=== PATIENT | female | born 1955 | race Caucasian/White ===

== ENCOUNTER 2020-07-15 08:51 | Observation (INO) ==
--- NOTE | 2020-07-08 11:13 | PAT Medication Instructions ---
Medication Instructions Date of Service July 08, 2020 Home Medications albuterol sulfate 1 puff INHALATION QID PRN fluticasone furoate-vilanterol [Breo Ellipta] 1 inh INHALATION QAM latanoprost 1 drp OPHTHALMIC (EYE) HS meloxicam [Mobic] 7.5 mg PO BID mepolizumab [Nucala] 100 mg SUBCUT MO 1 omeprazole 20 mg PO QAM tiotropium bromide [Spiriva Respimat] 2 puff INHALATION HS Continue as directed mepolizumab [Nucala] 100 mg SUBCUT MO 1 ASK your surgeon for instructions meloxicam [Mobic] 7.5 mg PO BID Take morning of surgery With a small sip of water, OTHERWISE NOTHING TO EAT OR DRINK AFTER MIDNIGHT: albuterol sulfate 1 puff INHALATION QID PRN (use if needed; please bring with you to hospital day of surgery if possible) fluticasone furoate-vilanterol [Breo Ellipta] 1 inh INHALATION QAM omeprazole 20 mg PO QAM Take evening before surgery albuterol sulfate 1 puff INHALATION QID PRN (if needed) latanoprost 1 drp OPHTHALMIC (EYE) HS tiotropium bromide [Spiriva Respimat] 2 puff INHALATION HS Other Notes If you have any questions please call us at [phone] or [phone] or [phone] or [phone]
--- NOTE | 2020-07-09 11:22 | Anesthesiology Consultation ---
Date of Service July 09, 2020 Assessment & Plan (1) Encounter for pre-operative examination: COVID Status: As of 07/08 assessment, patient denies travel to endemic area, known exposure/sick contacts, or symptoms of COVID19. Patient instructed that they and their household members must follow strict social distancing guidelines, wear a mask in public and avoid travel for 14 days prior to surgery. Preoperative COVID19 testing to be completed prior to surgery per surgeon's ar rangements (done today, 07/09 at [facility] [place] [facility] [place] Patient made aware to self-isolate as much as possible between COVID testing and surgery. Chart Review Chart Review: Acceptable Risk for Surgery (pending surgeon-ordered PCP clearance) and Patient seen in Pre Admission Testing Teaching & Discussion Instructed NPO after midnight before surgery, except medications with 15 cc of water. Medication instructions provided according to the PAT guidelines. History Surgery Operation Date: 07/15/20 12:10 Proposed Procedures p Right Total Knee Arthroplasty - Turner Fisher, Height/Weight Height: 5 ft 1 in Weight: 69.5 kg Allergies Allergy/AdvReac Type Severity Reaction Status Date / Time fentanyl AdvReac Nausea Verified 06/23/20 15:41 hydrocodone AdvReac n/v, Verified 06/23/20 15:38 hallucinations, syncope midazolam [From Versed] AdvReac Nausea Verified 06/23/20 15:41 oxycodone AdvReac n/v, Verified 06/23/20 15:38 hallucinations, syncope Medications Home Medications Medication Instructions Recorded Confirmed Last Taken albuterol sulfate 1 puff INHALATION QID PRN 06/23/20 06/23/20 Unknown fluticasone furoate-vilanterol 1 inh INHALATION QAM 06/23/20 06/23/20 Unknown [Breo Ellipta] latanoprost 1 drp OPHTHALMIC (EYE) HS 06/23/20 06/23/20 Unknown meloxicam [Mobic] 7.5 mg PO BID 06/23/20 06/23/20 Unknown mepolizumab [Nucala] 100 mg SUBCUT MO 06/23/20 06/23/20 Unknown omeprazole 20 mg PO QAM 06/23/20 06/23/20 Unknown tiotropium bromide [Spiriva 2 puff INHALATION HS 06/23/20 06/23/20 Unknown Respimat] Past Medical History Medical History (Updated 07/09/20 @ 11:42 by Amrit Zambrano) Asthma Using Spiriva and Advair daily, getting Nucala shots monthly. Uses PRN inh 1xmo on average Carpal tunnel syndrome of right wrist Degenerative disc disease GERD (gastroesophageal reflux disease) History of colitis Osteoarthritis Slipped intervertebral disc lumbar Exercise / Class Metabolic Activity II 4-5 Yardwork/Stairs/Walk up hill (Does Curves 5x per week (but not since COVID), remains active despite some MURPHY 2/2 asthma, denies any CP) Past Family History Family History Other Adopted Past Surgical History Surgical History History of arthroscopic knee surgery Rt History of cardiac cath either 2002 or 2003 - [facility] - no stents/angioplasty History of cholecystectomy History of colonoscopy History of D&C History of esophagogastroduodenoscopy (EGD) History of hysterectomy History of tooth extraction Nausea and vomiting after administration of anesthetic agent Slow to wake up after anesthesia Past Anesthesia History No Hx of Anesthesia Complications (other than PONV and 'slow to wake') and No Family Hx of Anesthesia Complications (unknown, adopted) "slow to wake" -- denies h/o reintubation, unanticipated admission or ICU stay. History of PONV No Hx of Motion Sickness and History of PONV Social History Smoking Status: Former smoker Do You Dip or Chew Tobacco: No Smoking End Date: quit at age 23 Hx Alcohol Use: No Hx Substance Use: No substance use type: does not use Review of Systems Pt denies any recent chest pain, shortness of breath, palpitations, cough, fever, URI, or uncontrolled acid reflux. Physical Exam Vital Signs BP: 113/69 P: 50bpm (asymptomatic, reports this is baseline) SPO2: 98% RA T: 98.6 F R: 12 ENMT Mouth: no dental restorations, no chipped teeth and no loose teeth Thyromental Distance: > or= 3.5 Finger Breadths Mallampati Class: I Neck normal visual inspection; neck extension not limited Respiratory normal respiratory effort Auscultation: lungs clear to auscultation bilaterally Cardiovascular Rate/Rhythm: regular rhythm and + bradycardic Heart Sounds: no murmur Vessels: no carotid bruit Extremities: no edema Testing Laboratory Results 07/09/20 11:46 07/09/20 11:46 PT 10.4 Seconds (9.0-12.0) 07/09/20 11:46 INR 1.0 (0.9-1.1) 07/09/20 11:46 APTT 25.6 Seconds (21.0-31.0) 07/09/20 11:46 Hemoglobin A1c 5.4 % (4.5-5.6) 07/09/20 11:46 Urine Color Yellow 07/09/20 Unknown Urine Appearance Clear (Clear) 07/09/20 Unknown Urine pH 5.0 (4.5-7.5) 07/09/20 Unknown Ur Specific [place] 1.008 (1.000-1.030) 07/09/20 Unknown Urine Protein Negative (Negative) 07/09/20 Unknown Urine Glucose (UA) Negative (Negative) 07/09/20 Unknown Urine Ketones Negative (Negative) 07/09/20 Unknown Urine Nitrite Negative (Negative) 07/09/20 Unknown Ur Leukocyte Esterase Trace (Negative) H 07/09/20 Unknown Urine WBC (Auto) 0 /hpf (0-5) 07/09/20 Unknown Urine RBC (Auto) 0-4 /hpf (0-4) 07/09/20 Unknown U Hyaline Cast (Auto) 0 /lpf (0-5) 07/09/20 Unknown U Epithel Cells (Auto) 0-5 /lpf (0-5) 07/09/20 Unknown Urine Bacteria (Auto) Negative (Negative) 07/09/20 Unknown Blood Type A Positive 07/09/20 11:46 Antibody Screen NEGATIVE 07/09/20 11:46 Electrocardiogram Date: 01/29/20 Findings: + NSR @ (79bpm) Chest X-Ray Date: 01/29/20 Findings: + NAD
[2020-07-09 12:09] LABS: Basophils # (auto) 0.02 K/uL (0-0.2); Basophils % (auto) 0.4 %; Eosinophils # (auto) 0.04 K/uL (0-0.5); Eosinophils % (auto) 0.9 %; Hematocrit (blood only) 40.1 % (37-47); Hemoglobin 13.5 g/dL (12.0-16.0); Lymphocytes # (auto) 1.34 K/uL (1.2-3.4); Lymphocytes % (auto) 29.3 %; Mean Corpuscular Hemoglobin 31.2 pg (25-34); Mean Corpuscular Hgb Conc 33.7 g/dL (32-36); Mean Corpuscular Volume 92.6 fL (80-100); Mean Platelet Volume 10.1 fL (7.4-10.4); Monocytes # (auto) 0.31 K/uL (0.11-0.59); Monocytes % (auto) 6.8 %; Neutrophils # (auto) 2.87 K/uL (1.4-6.5); Neutrophils % (auto) 62.6 %; Platelet Count 183 K/uL (130-400); RDW Coefficient of Variation 12.9 % (11.5-14.5); RDW Standard Deviation 43.4 fL (36.4-46.3); Red Blood Count 4.33 M/uL (4.2-5.4); White Blood Count 4.58 K/uL (4.8-10.8)
[2020-07-09 12:19] LABS: Estimated Average Glucose 108 mg/dl; Hemoglobin A1C 5.4 % (4.5-5.6)
[2020-07-09 12:21] LABS: BUN Creatinine Ratio 25.1 (10-20); Calcium 9.3 mg/dl (8.5-10.1); Creatinine Clr Calc Pharmacy 59.8 ml/min; Est GFR (African American) 82.8; Est GFR (Non-African American) 71.4; Potassium 4.1 mmol/L (3.5-5.1)
[2020-07-09 12:22] LABS: Appearance Urine Clear (Clear); Bacteria Urine Automated Negative (Negative); Bilirubin Urine Negative (Negative); Blood Urine Negative (Negative); Cast Urine Automated 0 /lpf (0-5); Color Urine Yellow; Epithelial Cell Urine Auto 0-5 /lpf (0-5); Glucose Urine UA Negative (Negative); Ketones Urine Negative (Negative); Leukocyte Esterase Urine Trace (Negative); Nitrite Urine Negative (Negative); Protein Urine Negative (Negative); RBC Urine Automated 0-4 /hpf (0-4); Specific Gravity Urine 1.008 (1.000-1.030); Urobilinogen Urine Negative (Negative); WBC Urine Automated 0 /hpf (0-5)
[2020-07-09 12:22] LABS: Partial Thromboplastin Ratio 0.9; Partial Thromboplastin Time 25.6 Seconds (21.0-31.0); Prothrombin Time 10.4 Seconds (9.0-12.0)
--- NOTE | 2020-07-13 16:38 | History & Physical Report ---
Date of Service July 15, 2020 Assessment & Plan (1) Degenerative joint disease of knee, right: I have indicated the patient for right total knee replacement. The risks, benefits and complications of surgery were explained to the patient which include but not limited to infection, acute blood loss, DVT/PE, injury to nerves, vessels, bone, soft tissue, arthrofibrosis, chronic pain, failure of the prosthesis, knee dislocation, leg length discrepancy, need for additional surgery, cardiac and pulmonary events and . The patient wished to proceed with surgery and informed consent was obtained at this time. We will plan for ASA BID post-operatively for DVT prophylaxis. Upon discharge the patient will be discharged home with home health services. Appropriate clearances by PCP w ere obtained. History of Present Illness Chief Complaint: Right knee pain/DJD Primary Care Provider: Juanita Sims DO The patient is a 65 year old female who presents with complaints of severe right knee pain and DJD. The patient has failed outpatient conservative treatments to this point which included NSAIDS, IA corticosteroid injection, bracing, home exercise/walking program. The patient's pain and limited function have progressed to the point where they severely hinder their activities of daily living and they no longer tolerate exercise programs. They are requesting to proceed with total knee replacement surgery. Allergies Allergy/AdvReac Type Severity Reaction Status Date / Time fentanyl AdvReac Nausea Verified 07/15/20 09:09 hydrocodone AdvReac n/v, Verified 07/15/20 09:09 hallucinations, syncope midazolam [From Versed] AdvReac Nausea Verified 07/15/20 09:09 oxycodone AdvReac n/v, Verified 07/15/20 09:09 hallucinations, syncope Home Medications Home Medications Medication Instructions Recorded Confirmed Type albuterol sulfate 1 puff INHALATION QID PRN 06/23/20 07/15/20 History fluticasone furoate-vilanterol 1 inh INHALATION QAM 06/23/20 07/15/20 History [Breo Ellipta] latanoprost 1 drp OPHTHALMIC (EYE) HS 06/23/20 07/15/20 History meloxicam [Mobic] 7.5 mg PO BID 06/23/20 07/15/20 History mepolizumab [Nucala] 100 mg SUBCUT MO 06/23/20 07/15/20 History omeprazole 20 mg PO QAM 06/23/20 07/15/20 History tiotropium bromide [Spiriva 2 puff INHALATION HS 06/23/20 07/15/20 History Respimat] Past Med/Surg History Medical History Asthma Using Spiriva and Advair daily, getting Nucala shots monthly. Uses PRN inh 1xmo on average Carpal tunnel syndrome of right wrist Degenerative disc disease GERD (gastroesophageal reflux disease) History of colitis Osteoarthritis Slipped intervertebral disc lumbar Surgical History History of arthroscopic knee surgery Rt History of cardiac cath either 2002 or 2003 - [facility] - no stents/angioplasty History of cholecystectomy History of colonoscopy History of D&C History of esophagogastroduodenoscopy (EGD) History of hysterectomy History of tooth extraction Nausea and vomiting after administration of anesthetic agent Slow to wake up after anesthesia Family History Other Adopted Social History Smoking Status: Former smoker Smoking End Date: quit at age 23; Second Hand Exposure: Yes; Do You Dip or Chew Tobacco: No; Tobacco Cessation Education Requested by Patient: No Hx Alcohol Use: No Hx Substance Use: No Preferred Language: Nepalese Communication Ability: Effective Reversing Mill Roller Required: No Beliefs That Will Affect Care: None Current Living Situation: Alone Feels Safe at Home: Yes Safety Concerns: Feels Safe At This Time Assistive Devices: Glasses Review of Systems Review of Systems: All systems reviewed & are unremarkable except as noted in HPI & below Constitutional: as per Subjective / HPI Physical Exam Physical Exam: RLE NVSI +EHL/FHL/TA/GS SILT grossly, +2 DP pulse, compartments soft NT, limited painful ROM of the knee, +LJLT, 0-110 degrees of flexion, +creptius. Constitutional: WD/WN, vitals as above Eyes: PERRL, conjunctivae normal, anicteric sclerae ENMT: external ear and nose normal, oropharynx normal Neck: trachea midline, no thyromegaly Respiratory: normal respiratory effort, lungs clear to auscultation Cardiovascular: RRR, no murmur, no edema Gastrointestinal (Abdomen): normal bowel sounds, soft, nontender, no hepatosplenomegaly Musculoskeletal: no cyanosis or clubbing, extremities motor strength 5/5 Skin: no rashes, warm and dry Neurologic: patellar DTR's 2+ bilat, sensation intact Psychiatric: A+Ox3, euthymic affect Lymphatic: no cervical or axillary lymphadenopathy Results & Data Results & Data ([facility]) Diagnostic Findings Multiple views of the knee demonstrates severe tricompartmental DJD with complete loss of the lateral joint space. +osteophytes, +sclerosis lateral and patellofemoral compartment Pre Admission Testing Addendum Laboratory Results 07/09/20 11:46 07/09/20 11:46 PT 10.4 Seconds (9.0-12.0) 07/09/20 11:46 INR 1.0 (0.9-1.1) 07/09/20 11:46 APTT 25.6 Seconds (21.0-31.0) 07/09/20 11:46 Hemoglobin A1c 5.4 % (4.5-5.6) 07/09/20 11:46 Urine Color Yellow 07/09/20 Unknown Urine Appearance Clear (Clear) 07/09/20 Unknown Urine pH 5.0 (4.5-7.5) 07/09/20 Unknown Ur Specific [place] 1.008 (1.000-1.030) 07/09/20 Unknown Urine Protein Negative (Negative) 07/09/20 Unknown Urine Glucose (UA) Negative (Negative) 07/09/20 Unknown Urine Ketones Negative (Negative) 07/09/20 Unknown Urine Nitrite Negative (Negative) 07/09/20 Unknown Ur Leukocyte Esterase Trace (Negative) H 07/09/20 Unknown Urine WBC (Auto) 0 /hpf (0-5) 07/09/20 Unknown Urine RBC (Auto) 0-4 /hpf (0-4) 07/09/20 Unknown U Hyaline Cast (Auto) 0 /lpf (0-5) 07/09/20 Unknown U Epithel Cells (Auto) 0-5 /lpf (0-5) 07/09/20 Unknown Urine Bacteria (Auto) Negative (Negative) 07/09/20 Unknown Blood Type A Positive 07/09/20 11:46 Antibody Screen NEGATIVE 07/09/20 11:46 10/21/20 Unknown Urine Culture - Final Urine,Clean Catch No growth - less than 1,000 colonies/mL.
[~2020-07-15 08:51] MED LIST: ACETAMINOPHEN 500 MG TAB PO SCH; BUPIVACAINE 0.5 % 5 MG/1 ML PF 10ML VIAL ONE; CeleBREX 200 MG CAP PO SCH; DEXAMETHASONE SOD INJ 4 MG/ML VIAL ONE; EPINEPHrine INJ 1 MG/ML AMP ONE; FAMOTIDINE 20 MG TAB PO SCH; GABAPENTIN 600 MG DOSE PO SCH; LIDOCAINE HCL 2% 2 ML VIAL/AMP(20MG/ML) INFIL ONE; LR 500ML BOLUS, THEN 15ML/HR IV SCH; METOCLOPRAMIDE HCL 10 MG TABLET PO SCH; MIDAZOLAM HCL 1 MG/ML 2ML VIAL ONE; ONDANSETRON INJ 2 MG/ML 2 ML VIAL ONE; PROPOFOL IV EMULSION 10 MG/ML 20 ML VIAL IV ONE; ROPIVACAINE 0.5% 5 MG/ML 30 ML VIAL ONE; ROPIVACAINE 0.5% HCL/PF 150 MG, BUPIVACAINE 0.5% MPF 30 ML, EPINEPHrine 30MG/30ML (OR U... INFIL SCH; TRANEXAMIC ACID 1,000 MG **IV Intra-op IV SCH; TRANEXAMIC ACID 1,000 MG **IV Pre-op IV SCH; ceFAZolin 1000MG 1,000 MG/7.5 ML SYR IV SCH; dexAMETHasone 4 MG TAB PO SCH
[2020-07-15] MEDS ORDERED: PHENYLEPHRINE 100MCG/ML 5ML SYR IV PRN (09:09)
[2020-07-15] MEDS ORDERED: ONDANSETRON INJ 2 MG/ML 2 ML VIAL IV PRN ×2 (09:09→15:01)
[2020-07-15] MEDS ORDERED: ATROPINE SULFATE 0.1 MG/ML 10ML SYR IV PRN (09:09)
[2020-07-15] MEDS ORDERED: ePHEDrine sulfate 50 MG/ML AMP IV PRN (09:09)
[2020-07-15] MEDS ORDERED: LABETALOL HCL IV 5 MG/ML 20ML IV PRN (09:09)
[2020-07-15] MEDS ORDERED: ORTHO JOINT ANESTHETIC ONE (09:20)
[2020-07-15] MEDS ORDERED: BACITRACIN INJ 50,000 UNIT VIAL ONE (09:20)
--- NOTE | 2020-07-15 09:45 | History & Physical Bridge Note ---
Date of Service July 15, 2020 History & Physical Bridge Note I have examined the patient, reviewed the History & Physical and in the interval since the performance of the History & Physical I have noted the following changes of clinical significance: no changes noted
[2020-07-15] MEDS ORDERED: ePHEDrine sulfate 50 MG/ML SYR ONE (12:18)
--- NOTE | 2020-07-15 13:13 | Post Operative Brief Note ---
Immediate Post Op Note v1 Date of Surgery July 15, 2020 Pre & Post Diagnosis Operation Date: 07/15/20 11:25 Pre-Op Diagnosis: Osteoarthritis, Right knee Post-Op Diagnosis: Osteoarthritis, Right knee I identified the patient and participated in the time-out.: Yes Procedure Operation Date: 07/15/20 11:25 Actual Procedures p Right Total Knee Arthroplasty(Right) - Turner Fisher DO Surgeon Turner Fisher DO Manager Target Hong Johnston Estimated Blood Loss 65 Findings Consistent with Post-Op Diagnosis Fluids 1300 cc LR Specimens Distal femur and proximal tibia bone fragments Anesthesia Type Spinal MAC Complications none Disposition Disposition: Recovery Room Overlapping Procedure I was present for: the critical portions of procedure. I was immediately available: during the entire case. Back up surgeon: was not required during procedure.
--- NOTE | 2020-07-15 13:15 | Operative Report ---
Post Operative Report Pre & Post Diagnosis Operation Date: 07/15/20 11:25 Pre-Op Diagnosis: Osteoarthritis, Right knee Post-Op Diagnosis: Osteoarthritis, Right knee I identified the patient and participated in the time-out.: Yes Procedure Operation Date: 07/15/20 11:25 Actual Procedures p Right Total Knee Arthroplasty(Right) - Turner Fisher DO Surgeon Turner Fisher, Grocery Clerk Selling Hong Johnston Estimated Blood Loss 65 Findings Consistent with Post-Op Diagnosis Specimens Distal femur and proximal tibia bone fragment Anesthesia Type Spinal MAC Complications none Disposition Disposition: Recovery Room Indications The patient is a 65-year-old female presents with long history of severe right knee tricompartmental DJD and failed outpatient conservative treatments including NSAIDs, bracing, injections, bracing and home walking/exercise program. The patient's symptoms have progressed to the point where it has been difficult to perform normal activities of daily living. I have indicated the patient for a right total knee arthroplasty, the risks and benefits and complications of the procedure include but are not limited to infection bleeding damage to bone, nerves, vessels, surrounding soft tissue, blood clots, loss of function, leg length discrepancy, dislocation, failure of the components, need for additional surgery and . The patient wished to proceed with surgery at this time and informed consent was obtained. Appropriate clearances were obtained. Description of Procedure COMPONENTS USED: Jasson persona knee system: Femur size 6, Tibia size D, Tibial articulating surface 12 PS, Patella 35 mm Following induction of spinal anesthesia, a tourniquet was applied to the proximal aspect of the thigh and the patient's right leg was prepped and draped in the usual sterile manner. A timeout was performed, patient identified and site marlyn confirmed. Appropriate pre-operative IV antibiotics were given. The limb was exsanguinated with an Esmarch bandage and tourniquet was inflated to 300 mmHg. A longitudinal midline incision was made over the anterior knee. Subcutaneous tissue was sharply dissected down to fascia. Electrocautery was used for hemostasis. Next a parapatellar arthrotomy was performed. Patella was everted and the knee was flexed. A Rivers retractor was used to expose the synovium above on the anterior aspect of the femur and removed down to bone. Next, the anterior fat pad was removed to aid in visualization. The medial face of the tibia was cleared of soft tissue first with a Bovie and a cuevas elevator. This tissue was retracted posteriorly using a blunt Hohmann. Next, the extra-medullary tibial cutting guide was placed to the anterior aspect of the tibia. The tibia resection level was set taking 2mm from the defective tibial condyle. Resection depth was once again confirmed with rudolph wing. The medial and lateral collateral ligament was protected with two Hohmann retractors. The tibia guide was removed and proximal tibial bone fragment removed utilizing straight osteotome, electrocautery and Eduardo. Next, the distal femur intramedullary canal was accessed utilizing the step drill. The intramedullary distal femur cutting guide was placed into the canal and pinned into place. The distal femur was cut on the 5 degree setting. Next the cutting guide was removed and the femur was sized. Care was taken to ensure appropriate business representative all rotation and 5 degree holes were drilled. A size 6 4-in-1 cutting block was placed on the distal end of the femur and secured into place with two short headed screws. Two bent Hohmann retractors were placed to protect the medial and lateral collateral ligaments. The oscillating saw was used to cut anterior, posterior, anterior chamfer and posterior chamfer. The four and one cutting block was removed and bone fragments excised. Laminar mechanical spreader operator was placed laterally and the ACL and PCL were removed followed by the medial meniscus and posterior medial osteophytes. Aquamantys was utilized for any posterior medial bleeders and Orthomix injected into the posterior medial capsule. A laminar mechanical spreader operator was then placed in the medial compartment and the lateral meniscus and posterior osteophytes were removed. Aquamantys was utilized for any posterior lateral bleeders and Orthomix injected into the posterior lateral capsule. Next, drop migel and spacer block were placed with the leg in flexion and extension to assess alignment and flexion/extension gaps. Next, the proximal tibia was assessed and two bent Hohmans were placed medial and lateral to aid in visualization. The appropriate tibia size and rotation was selected and a size D tibial plate was pinned into place with appropriate rotation. Preparation of the tibia was completed utilizing the matching tibial drill and broach. I then turned my attention back to the distal femur in a trial femoral component was impacted into place. Appropriate femoral width was assessed and selected. Next the femur PS box cut guide was placed and cut made with the reciprocal saw and the PS box provisional placed. A trial size 10 PS tibia articular tray was placed and varus-valgus balance assessed in 0 degrees of extension and 30, 60 and 90 degrees of flexion. A final tibial articular surface size 12 PS was chosen. Assess was gained to the patella and caliper utilized to measure width. The patella reamer was utilized and remaining bone removed with oscillating saw. A size 35 mm patella button was selected and the patella pegs drilled. Trial patella button was placed and tracking was assessed. The knee was found to be well balanced, well aligned with excellent patella tracking. The trials were removed and final components were obtained and assembled. The knee was irrigated copiously with sterile saline solution mixed with bacitracin. Access to the proximal tibia was once again obtained utilizing to the Hohmans and the proximal tibia and distal femur were dried with lap sponges. The final components were cemented into place and all excess cement was removed. A trial tibial articular surface was placed while cemented hardened. Knee stability was once again assessed and the final component inserted. A Betadine soak was performed. After 3 minutes, the knee was once more irrigated with copious sterile saline solution with bacitracin. The knee was injected with the remaining Orthomix which includes a combination of Ropivicaine 0.5% 150mg, Bupivicaine 0.5%/Epinephrine 1:200,000 30ml, Toradol 30mg, Dexamethasone 4mg, Ketamine 10mg, Clonidine 100mcg and NSS 30ml solution. The capsulotomy was closed with #1 Vicryl followed by subcutaneous closure with 2-0 Vicryl suture and a 3-0 V-lock suture. Skin closure was performed using Prineo dressing followed by Telfa, 4 x 4s and faustino wrap. Tourniquet was deflated at 95 minutes. The patient tolerated the procedure well and was taken to the PACU in stable condition. Due to the complex nature of the procedure, the entire surgery was performed with the operational assistance of Hong Johnston PA-C. The assistant press operator, under direct supervision, was involved in the actual performance of all aspects of the surgical procedure including patient positioning, hemostasis, tissue retraction, instrument management and wound closure. I attest to the content of the Intraoperative Record and any orders documented therein. Any exceptions are noted below.
--- NOTE | 2020-07-15 14:18 | XRay Report ---
XR knee RT 1 or 2V routine CLINICAL HISTORY: Surgical Post Op COMPARISON: None. DISCUSSION: There are postsurgical changes of a total right knee arthroplasty and patellar resurfacin g. The femoral and tibial components appear well seated. There is gas present within the soft tissues consistent with recent surgery. IMPRESSION: Postsurgical changes of a total right knee arthroplasty. ACT 112: Negative or not required by law. Electronically signed by: Marcelo Morgan M.D. 07/15/2020 2:16 PM
--- NOTE | 2020-07-15 14:35 | Anesthesiology Progress Note ---
Date of Service July 15, 2020 Anesthesia Post Procedure Vital Signs Vital Signs: Temp Pulse Pulse Resp BP BP Pulse Ox 07/15/20 14:25 36.6 C 70 14 110/59 L 94 07/15/20 14:15 71 14 104/60 94 07/15/20 14:05 74 17 103/60 100 07/15/20 13:55 68 17 105/57 L 100 07/15/20 13:46 36.2 C L 64 12 88/52 L 98 07/15/20 10:00 62 18 123/74 96 07/15/20 09:15 36.9 C 70 16 120/77 94 Pain Intensity Right Knee: Pain Intensity: 2 Transfer of Care Handoff Completed per policy Notes Mental Status: alert / awake / arousable Patient Amnestic to Procedure: Yes Nausea / Vomiting: adequately controlled Pain: adequately controlled Airway Patency, RR, SpO2: stable & adequate BP & HR: stable & adequate Hydration State: stable & adequate Neuraxial Anesthesia: was administered and sensory block is resolving Anesthetic Complications: no major complications apparent and Pt Satisfied with anesthetic care
[2020-07-15] MEDS ORDERED: PNEUMOCOCCAL ADMINISTRATION CHARGE ONE (14:47)
[2020-07-15] MEDS ORDERED: PNEUMOCOCCAL POLYSACCHARIDES 25 MCG/0.5 ML VIAL/SYR IM ONE (14:47)
[2020-07-15] MEDS ORDERED: MAGNESIUM HYDROXIDE SUSP 30 ML UDC PO PRN (15:01)
[2020-07-15] MEDS ORDERED: NALOXONE HCL 0.4 MG/1 ML VIAL/CARP IV PRN (15:01)
[2020-07-15] MEDS ORDERED: METOCLOPRAMIDE HCL INJ 5 MG/ML 2 ML VIAL IV PRN (15:01)
[2020-07-15] MEDS ORDERED: bisacodyL 10 MG SUPP PR PRN (15:01)
[2020-07-15] MEDS ORDERED: diphenhydrAMINE Capsule 25 MG CAP PO PRN (15:01)
[2020-07-15] MEDS ORDERED: HYDROmorphone INJ 0.5 MG/0.5 ML SYR IV PRN (15:01)
[2020-07-15] MEDS ORDERED: ALBUTEROL HFA 8 GM INHALER INH PRN (15:01)
[2020-07-15] MEDS ORDERED: SODIUM CHLORIDE 0.9% 1000ML 1,000 ML IV SCH (15:01)
--- NOTE | 2020-07-15 16:43 | Orthopedic Progress Note ---
Date of Service July 15, 2020 Assessment & Plan (1) Degenerative joint disease of knee, right: Status post right total knee arthroplasty -Ancef x24 -DVT prophylaxis: SCDs, teds, ASA twice daily -Weight-bear as tolerated right lower extremity -PT/OT -Postoperative x-ray demonstrates a well aligned well fixed prosthesis without evidence of fracture or dislocation. -A.m. lab -DC planning Admission and Anticipated Discharge Date Admission Date: July 15, 2020 Subjective Post Operative Progress Note Patient seen sitting up in bed, comfortable, denies complaints, pain well controlled, no acute issues. Patient still feeling effects of spinal anesthesia. Review of Systems Review of Systems: All systems reviewed & are unremarkable except as noted in HPI & below Constitutional: as per Subjective / HPI Physical Exam Physical Exam: Right lower extremity physical exam limited secondary to spinal anesthesia, +2 dorsalis pedis pulse, compartment soft nontender, dressing clean dry and intact. Results & Data ([facility]) Vital Signs (Past 12 Hours) Vital Signs Temp Pulse Pulse Resp BP BP Pulse Ox 07/15/20 15:40 36.4 C L 69 16 112/67 95 07/15/20 15:10 36.4 C L 67 16 100/62 95 07/15/20 14:47 36.4 C L 95 H 16 106/61 94 07/15/20 14:25 36.6 C 70 14 110/59 L 94 07/15/20 14:15 71 14 104/60 94 07/15/20 14:05 74 17 103/60 100 07/15/20 13:55 68 17 105/57 L 100 07/15/20 13:46 36.2 C L 64 12 88/52 L 98 07/15/20 10:00 62 18 123/74 96 07/15/20 09:15 36.9 C 70 16 120/77 94
[2020-07-15] MEDS: KETOROLAC TROMETHAMINE 15 MG/ML VIAL IV SCH (17:13)
[2020-07-15] MEDS: ceFAZolin 1000MG 1,000 MG/7.5 ML SYR IV SCH (20:02)
[2020-07-15] MEDS: SENNA 8.6 MG TAB PO SCH (20:03)
[2020-07-15] MEDS: DOCUSATE SODIUM 100 MG CAP PO SCH (20:03)
[2020-07-15] MEDS: LATANOPROST 0.005% OP SOLN 2.5 ML BTL OP SCH (20:03)
[2020-07-16] MEDS: KETOROLAC TROMETHAMINE 15 MG/ML VIAL IV SCH ×3 (00:56→11:27)
[2020-07-16] MEDS: ceFAZolin 1000MG 1,000 MG/7.5 ML SYR IV SCH (05:02)
[2020-07-16 07:35] LABS: Hematocrit (blood only) 35.8 % (37-47); Hemoglobin 12.1 g/dL (12.0-16.0); Mean Corpuscular Hemoglobin 31.1 pg (25-34); Mean Corpuscular Hgb Conc 33.8 g/dL (32-36); Platelet Count 176 K/uL (130-400); RDW Coefficient of Variation 12.9 % (11.5-14.5); RDW Standard Deviation 43.5 fL (36.4-46.3); Red Blood Count 3.89 M/uL (4.2-5.4); White Blood Count 8.55 K/uL (4.8-10.8)
[2020-07-16] MEDS: MULTIVITAMIN TAB PO SCH (07:56)
[2020-07-16] MEDS: PANTOprazole 40 MG TAB PO SCH (07:56)
[2020-07-16] MEDS: ASPIRIN 325 MG ECTAB PO SCH ×2 (07:56→20:52)
[2020-07-16] MEDS: FLUTICASONE/VILANTEROL 200/25MCG 14 PUFFS/INHALER INH SCH (07:57)
[2020-07-16] MEDS: UMECLIDINIUM BROMIDE 62.5MCG/BLISTER 7 PUFFS/INHALER INH SCH (07:57)
[2020-07-16] MEDS: DOCUSATE SODIUM 100 MG CAP PO SCH ×2 (07:57→20:52)
[2020-07-16 08:09] LABS: BUN Creatinine Ratio 23.9 (10-20); Creatinine Clr Calc Pharmacy 53.9 ml/min; Est GFR (African American) 73.9; Est GFR (Non-African American) 63.7; Potassium 4.1 mmol/L (3.5-5.1)
--- NOTE | 2020-07-16 10:30 | Orthopedic Progress Note ---
Date of Service July 16, 2020 Assessment & Plan (1) Degenerative joint disease of knee, right: Status post right total knee arthroplasty POD#1 -Ancef x24 -DVT prophylaxis: SCDs, teds, ASA twice daily -Weight-bear as tolerated right lower extremity -PT/OT -Postoperative x-ray demonstrates a well aligned well fixed prosthesis without evidence of fracture or dislocation. -A.m. lab - as above, hgb 12.1 -Neuropraxia: Right lower extremity: Reassurance provided, will continue to monitor, will flex the knee and remove dressing at this time. -DC planning Admission and Anticipated Discharge Date Admission Date: July 15, 2020 Subjective Post Operative Progress Note Patient seen this morning sitting up in bed, comfortable, denies complaints, pain well controlled, no acute issues. Patient still feeling Regional anesthesia to RLE. Review of Systems Review of Systems: All systems reviewed & are unremarkable except as noted in HPI & below Constitutional: as per Subjective / HPI Physical Exam Physical Exam: Right lower extremity physical exam limited secondary to persistent regional block, + neuropraxia of the right lower extremity. +2 dorsalis pulse, compartment soft nontender, dressing clean dry and intact. Constitutional: WD/WN, vitals as above Results & Data ([place]) Vital Signs (Past 12 Hours) Vital Signs Temp Pulse Resp BP Pulse Ox 07/16/20 07:21 36.5 C 64 16 110/70 98 07/16/20 03:33 36.8 C 76 16 98/61 L 98 07/15/20 22:56 36.8 C 80 16 100/61 95 Laboratory Results 07/16/20 07/16/20 Range/Units 07:04 07:04 WBC 8.55 (4.8-10.8) K/uL RBC 3.89 L (4.2-5.4) M/uL Hgb 12.1 (12.0-16.0) g/dL Hct 35.8 L (37-47) % MCV 92.0 (80-100) fL MCH 31.1 (25-34) pg MCHC 33.8 (32-36) g/dL RDW Std Deviation 43.5 (36.4-46.3) fL RDW Coeff of Forrest 12.9 (11.5-14.5) % Plt Count 176 (130-400) K/uL MPV 10.0 (7.4-10.4) fL Sodium 138 (136-145) mmol/L Potassium 4.1 (3.5-5.1) mmol/L Chloride 107 (98-107) mmol/L Carbon Dioxide 26 (21-32) mmol/L Anion Gap 5.0 (3-11) BUN 23 H (7-18) mg/dl Creatinine 0.95 (0.6-1.2) mg/dl Est Cr Clr Drug Dosing 53.9 ml/min Est GFR ( Amer) 73.9 Est GFR (Non-Af Amer) 63.7 BUN/Creatinine Ratio 23.9 H (10-20) Glucose 120 H (70-99) mg/dl Calcium 9.0 (8.5-10.1) mg/dl
--- NOTE | 2020-07-16 15:33 | Anesthesiology Progress Note ---
Date of Service July 16, 2020 Assessment & Plan Admission and Anticipated Discharge Date Admission Date: July 15, 2020 Subjective The patient is s/p R TKA POD #1. The patient states having RLE numbness and weakness distal to her knee. The patient has a R foot drop. The patient received a spinal and adductor canal block. I spoke to the patient of the unlikelihood of her symptoms to be caused by the spinal and nerve block. The patient is being kept an extra night to monitor her symptoms. I explained that her symptoms should improved. I told her that Dr. Mike would follow up with her tomorrow. The patient was understanding. Physical Exam Vital Signs: Last Vital Signs Temp 97.9 F 07/16/20 12:16 Pulse 65 07/16/20 12:16 Resp 16 07/16/20 12:16 BP 108/74 07/16/20 12:16 Pulse Ox 99 07/16/20 12:16 Results & Data ([facility]) Medications Administered Aspirin (Aspirin 325 Mg Ectab) 325 mg PO BID EUGENIO Stop: 08/15/20 08:59 Last Admin: 07/16/20 07:56 Dose: 325 mg Documented by: [id number] Docusate Sodium (Docusate Sodium 100 Mg Cap) 100 mg PO BID EUGENIO Stop: 08/14/20 20:59 Last Admin: 07/16/20 07:57 Dose: 100 mg Documented by: [id number] Admin: 07/15/20 20:03 Dose: 100 mg Documented by: [id number] Fluticasone/Vilanterol (Fluticasone/Vilanterol 200/25mcg 14 Puffs/Inhaler) 1 puffs INH QAM EUGENIO Stop: 08/15/20 08:59 Last Admin: 07/16/20 07:57 Dose: 1 puffs Documented by: [id number] Latanoprost (Latanoprost 0.005% Op Soln 2.5 Ml Btl) 1 drops OP HS EUGENIO Stop: 08/14/20 20:59 Last Admin: 07/15/20 20:03 Dose: 1 drops Documented by: [id number] Multivitamins (Multivitamin Tab) 1 tab PO QAM EUGENIO Stop: 08/15/20 08:59 Last Admin: 07/16/20 07:56 Dose: 1 tab Documented by: [id number] Pantoprazole Sodium (Pantoprazole 40 Mg Tab) 40 mg PO QAM EUGENIO Stop: 08/15/20 08:59 Last Admin: 07/16/20 07:56 Dose: 40 mg Documented by: [id number] Sennosides (Senna 8.6 Mg Tab) 17.2 mg PO HS [facility] Stop: 08/14/20 20:59 Last Admin: 07/15/20 20:03 Dose: 17.2 mg Documented by: [id number] Umeclidinium [place] (Umeclidinium [place] 62.5mcg/Blister 7 Puffs/Inhaler) 1 puffs INH DAILY EUGENIO Stop: 08/15/20 08:59 Last Admin: 07/16/20 07:57 Dose: 1 puffs Documented by: [id number]
[2020-07-16] MEDS: traMADol HCL 50 MG TABLET PO PRN ×2 (18:19→23:44)
[2020-07-16] MEDS: CeleBREX 200 MG CAP PO SCH (20:52)
[2020-07-16] MEDS: SENNA 8.6 MG TAB PO SCH (20:53)
[2020-07-16] MEDS: LATANOPROST 0.005% OP SOLN 2.5 ML BTL OP SCH (20:53)
[2020-07-16] MEDS: ACETAMINOPHEN 500 MG TAB PO PRN (20:55)
[2020-07-17 07:02] LABS: Hematocrit (blood only) 33.1 % (37-47); Hemoglobin 11.2 g/dL (12.0-16.0); Mean Corpuscular Hemoglobin 31.3 pg (25-34); Mean Corpuscular Hgb Conc 33.8 g/dL (32-36); Mean Corpuscular Volume 92.5 fL (80-100); Mean Platelet Volume 10.2 fL (7.4-10.4); Platelet Count 155 K/uL (130-400); RDW Coefficient of Variation 12.9 % (11.5-14.5); RDW Standard Deviation 43.8 fL (36.4-46.3); Red Blood Count 3.58 M/uL (4.2-5.4); White Blood Count 5.92 K/uL (4.8-10.8)
[2020-07-17 07:28] LABS: BUN Creatinine Ratio 29.4 (10-20); Calcium 8.7 mg/dl (8.5-10.1); Creatinine Clr Calc Pharmacy 49.7 ml/min; Est GFR (Non-African American) 57.8; Potassium 4.5 mmol/L (3.5-5.1)
--- NOTE | 2020-07-17 08:02 | Anesthesiology Progress Note ---
Date of Service July 17, 2020 Anesthesia Post Procedure Vital Signs Vital Signs: Temp Pulse Resp BP BP Pulse Ox 07/17/20 07:51 36.8 C 62 16 105/69 96 07/16/20 23:40 36.5 C 60 16 101/64 97 07/16/20 15:24 36.7 C 65 22 111/75 99 07/16/20 12:16 36.6 C 65 16 108/74 99 Pain Intensity Right Knee: Pain Intensity: 2 Transfer of Care Handoff Completed per policy Notes Mental Status: alert / awake / arousable Patient Amnestic to Procedure: Yes Nausea / Vomiting: adequately controlled Pain: adequately controlled Airway Patency, RR, SpO2: stable & adequate BP & HR: stable & adequate Hydration State: stable & adequate Anesthetic Complications: no major complications apparent and Pt Satisfied with anesthetic care Notes: The patient had concern yesterday that she felt numbness in her distal surgical leg. This numbness completely resolved by 1800 yesterday. Today she feels well.
[2020-07-17] MEDS: PANTOprazole 40 MG TAB PO SCH (08:28)
[2020-07-17] MEDS: UMECLIDINIUM BROMIDE 62.5MCG/BLISTER 7 PUFFS/INHALER INH SCH (08:28)
[2020-07-17] MEDS: CeleBREX 200 MG CAP PO SCH (08:28)
[2020-07-17] MEDS: ASPIRIN 325 MG ECTAB PO SCH (08:28)
[2020-07-17] MEDS: DOCUSATE SODIUM 100 MG CAP PO SCH (08:28)
[2020-07-17] MEDS: MULTIVITAMIN TAB PO SCH (08:28)
[2020-07-17] MEDS: FLUTICASONE/VILANTEROL 200/25MCG 14 PUFFS/INHALER INH SCH (08:29)
[2020-07-17] MEDS: ACETAMINOPHEN 500 MG TAB PO PRN (08:35)
[2020-07-17] MEDS: traMADol HCL 50 MG TABLET PO PRN (08:35)
--- NOTE | 2020-07-17 09:36 | Orthopedic Progress Note ---
Date of Service July 17, 2020 Assessment & Plan (1) Degenerative joint disease of knee, right: Status post right total knee arthroplasty POD#2 -Ancef x24 -DVT prophylaxis: SCDs, teds, ASA twice daily -Weight-bear as tolerated right lower extremity -PT/OT -Postoperative x-ray demonstrates a well aligned well fixed prosthesis without evidence of fracture or dislocation. -A.m. lab - as above, hgb 11.2 -Neuropraxia: resolved. -DC planning - home with POD#1 -Ancef x24 -DVT prophylaxis: SCDs, teds, ASA twice daily -Weight-bear as tolerated right lower extremity -PT/OT -Postoperative x-ray demonstrates a well aligned well fixed prosthesis without evidence of fracture or dislocation. -A.m. lab - as above, hgb 12.1 -Neuropraxia: Right lower extremity: Reassurance provided, will continue to monitor, will flex the knee and remove dressing at this time. -DC planning Admission and Anticipated Discharge Date Admission Date: July 15, 2020 Subjective Post Operative Progress Note Patient seen sitting up in bed, comfortable, denies complaints, pain well controlled, no acute issues. Denies F/C/N/V/SOB/CP. RLE paraesthesias completely resolved. Review of Systems Review of Systems: All systems reviewed & are unremarkable except as noted in HPI & below Constitutional: as per Subjective / HPI Physical Exam Physical Exam: RLE NVSI +EHL/FHL/TA/GS SILT grossly, +2 DP pulse, compartments soft NT, dressing cdi. Constitutional: WD/WN, vitals as above Results & Data ([facility]) Vital Signs (Past 12 Hours) Vital Signs Temp Pulse Resp BP Pulse Ox 07/17/20 07:51 36.8 C 62 16 105/69 96 07/16/20 23:40 36.5 C 60 16 101/64 97 Laboratory Results 07/17/20 07/17/20 Range/Units 06:26 06:26 WBC 5.92 (4.8-10.8) K/uL RBC 3.58 L (4.2-5.4) M/uL Hgb 11.2 L (12.0-16.0) g/dL Hct 33.1 L (37-47) % MCV 92.5 (80-100) fL MCH 31.3 (25-34) pg MCHC 33.8 (32-36) g/dL RDW Std Deviation 43.8 (36.4-46.3) fL RDW Coeff of Forrest 12.9 (11.5-14.5) % Plt Count 155 (130-400) K/uL MPV 10.2 (7.4-10.4) fL Sodium 137 (136-145) mmol/L Potassium 4.5 (3.5-5.1) mmol/L Chloride 107 (98-107) mmol/L Carbon Dioxide 27 (21-32) mmol/L Anion Gap 3.0 (3-11) BUN 30 H (7-18) mg/dl Creatinine 1.03 (0.6-1.2) mg/dl Est Cr Clr Drug Dosing 49.7 ml/min Est GFR ( Amer) 67.0 Est GFR (Non-Af Amer) 57.8 BUN/Creatinine Ratio 29.4 H (10-20) Glucose 91 (70-99) mg/dl Calcium 8.7 (8.5-10.1) mg/dl
--- NOTE | 2020-07-17 23:04 | Discharge Summary ---
Date of Service July 17, 2020 Admission HPI Per Admitting Provider The patient is a 65 year old female who presents with complaints of severe right knee pain and DJD. The patient has failed outpatient conservative treatments to this point which included NSAIDS, IA corticosteroid injection, bracing, home exercise/walking program. The patient's pain and limited function have progressed to the point where they severely hinder their activities of daily living and they no longer tolerate exercise programs. They are requesting to proceed with total knee replacement surgery. Principal Diagnosis Right total knee replacement -Right knee DJD Discharge Exam RLE NVSI +EHL/FHL/TA/GS SILT grossly, +2 DP pulse, compartments soft NT, dressing cdi. Constitutional WD/WN, vitals as above Discharge Data Allergies Allergy/AdvReac Type Severity Reaction Status Date / Time fentanyl AdvReac Nausea Verified 07/15/20 09:09 hydrocodone AdvReac n/v, Verified 07/15/20 09:09 hallucinations, syncope midazolam [From Versed] AdvReac Nausea Verified 07/15/20 09:09 oxycodone AdvReac n/v, Verified 07/15/20 09:09 hallucinations, syncope Consultations 07/15/20 15:01 Consult Case Management - Discharge Planning Routine Procedures Performed Operation Date: 07/15/20 11:25 Actual Procedures p Right Total Knee Arthroplasty(Right) - Turner Fisher DO Ordered Studies 07/15/20 05:00 US - OR guided needle placemen Routine Hospital Course (1) Degenerative joint disease of knee, right: The patient is a 65 -year-old female who presents with long standing hi story of severe right knee DJD and failed outpatient conservative treatments. The patient's symptoms have progressed to the point where it has been difficult to perform even normal activities of daily living. I indicated the patient for a right total knee arthroplasty, the risks, benefits and complications of the procedure include but not limited to infection, bleeding, damage to bone, nerves, vessels, surrounding soft tissue, may develop blood clots, loss of function, leg length discrepancy, dislocation, failure of the components, loosening of the components, the need for additional surgery and . The patient wished to proceed with surgery at this time and informed consent was obtained. Hospital Course: On 07/15/20 the patient was taken to the operating room, adequate anesthesia administered and underwent a right total knee arthroplasty. The patient tolerated the procedure well and was taken to the PACU in stable condition. Post-operatively the patient was started on a DVT ppx medication and given appropriate IV antibiotics. Consults were placed to physical therapy, occupational therapy and case management. On POD#1, the patient did well overnight and their pain was well controlled. The patent continued to have persistent neurapraxia in her RLE from the distal thigh to her foot. Knee flex and dressings were taken down. Reassurance provided and patient was monitored. Labs were drawn and the Hgb was 12.1. The patient was able to participate with PT. The patient's neurapraxia completely resolved by the evening. On POD#2, The patient did well overnight, pain well controlled, no acute issues. Progressed well with PT. Labs were drawn and hgb was 11.2. The patients hospital stay was relatively uneventful and they were deemed stable by the orthopedic team and consultants to be discharged home with on 07/17/20. Discharge Instructions: Upon discharge the patient may weight bear as tolerates through their operative extremity. They were instructed to keep the incision clean and dry at all times. The patient may shower but should not submerge the incision, avoid bathing, pools and hot tubs. The patient was given a script for pain medication and should take as instructed. The patient was given a script for DVT ppx 325mg ASA BID and should take as directed. The patient was instructed to not drive or travel for long distances until cleared to do so. If the patient develops any symptoms of fevers, chills, nausea, vomiting, increased redness, swelling, pain or drainage from the surgical site, they should notify the office and/or proceed to the nearest emergency room. The patient should follow up in 10-14 days after surgery for their routine post-operative follow-up appointment and should call the office to confirm the date and time. Status post right total knee arthroplasty POD#2 -Ancef x24 -DVT prophylaxis: SCDs, teds, ASA twice daily -Weight-bear as tolerated right lower extremity -PT/OT -Postoperative x-ray demonstrates a well aligned well fixed prosthesis without evidence of fracture or dislocation. -A.m. lab - as above, hgb 11.2 -Neuropraxia: resolved. -DC planning - home with POD#1 -Ancef x24 -DVT prophylaxis: SCDs, teds, ASA twice daily -Weight-bear as tolerated right lower extremity -PT/OT -Postoperative x-ray demonstrates a well aligned well fixed prosthesis without evidence of fracture or dislocation. -A.m. lab - as above, hgb 12.1 -Neuropraxia: Right lower extremity: Reassurance provided, will continue to monitor, will flex the knee and remove dressing at this time. -DC planning Total Time Total Time Spent Total Time Spent (In Minutes): 60 Discharge Plan Discharge Items Patient Disposition: Home - Home Health Services Reason For Visit: Osteoarthritis, Right knee Discharge Diagnosis: Right total knee replacement -Right knee DJD Condition on Discharge: Good Activity: Per Instructions section Lifting: Wait until after follow-up appointment Bathing: Keep incision dry Bathing Comment: No bathing, pools or hot tubs Sexual Activity: Wait until after follow-up appointment Exercise/Sports: Wait until after follow-up appointment Weightbearing: Full weightbearing Non-emergency contact: Primary Care Provider and Surgeon Call non-emergency contact if: you have any medication questions, your symptoms worsen, your pain is not controlled, your pain is worsening, your pain is unusual for you, your pain is concerning for you, you have a fever, your temperature is above 101, your wound has increased redness, your wound has increased drainage and your wound pain has increased Follow-up/Referrals: Juanita Sims DO [Primary Care Provider] - Diet: Regular Addtl Attending Provider Instructions: ACTIVITY RECOMMENDATIONS: SELF CARE INSTRUCTIONS AFTER TOTAL KNEE REPLACEMENT A. You may need to continue a physical therapy program after discharge from the hospital. There are several options available to you. Your doctor will assist you in selecting the best one for you. 1. An out-patient facility 2 to 3 times a week for therapy or home therapy. 2. Continue working on all exercises taught to you in the hospital. Your goals should be to increase bending of your knee to 90 degrees and beyond and to fully straighten your knee. B. You may progress at your own pace from walking with a walker or crutches to a cane; then to no assistive devices. C. Make walking a part of your daily routine. Be up as much as comfortable with rest periods throughout the day. Rest with leg elevation is very important. Use the ice wrap frequently for the first 3-4 weeks. D. There are no restrictions on activities. You may ride in a car, shop, pa rticipate in cigarette lighter repairer and all social activities. E. Wear the long elastic stockings (IVONE hose) 20 hours a day for 2 weeks after surgery. They can be removed several times a day for laundering and for a bath. F. You may shower, no tub baths until cleared by your doctor. SPECIAL CARE INSTRUCTIONS: VERY IMPORTANT TO READ AND REVIEW A. There are a few signs you need to watch for after you are home. Call [facility] if you notice any of the followin. Increased severe knee pain. Some pain is expected especially when you exercise. 2. Increased swelling in your leg or knee; pain or swelling of the calf muscle in either lower leg. 3. Any fluid drainage from the incision. 4. Shortness of breath or chest pain. B. Please call [facility] at if you have any concerns or questions about your operation or recovery. The doctor or his nurse will return your call promptly. C. You must take antibiotics before dental work, bladder, bowel or other surgery. Your doctor will provide you with a permanent care to carry describing this precaution. IMPORTANT: * REMEMBER TO TAKE ASPIRIN, 325 MG, TWICE DAILY FOR 4 WEEKS UNLESS OTHERWISE DIRECTED. THIS IS YOUR BLOOD THINNER. * HIGH RISK PATIENTS MAY BE PRESCRIBED A STRONGER BLOOD THINNER. THIS WILL BE PROVIDED AT DISCHARGE. * CALL IF INCREASED PAIN, REDNESS, DRAINAGE OR FEVER GREATER THAT 101. * WEAR IVONE HOSE 20 HOURS PER DAY FOR 2 WEEKS. * YOU MAY HAVE A LARGE BAND-AID LIKE DRESSING (SILVERON). THIS WILL REMAIN ON YOUR INCISION FOR 7 DAYS, THEN CAN BE REMOVED. IF INCISION IS LEAKING THROUGH DRESSING, CALL THE OFFICE . FOLLOW UP VISIT: If appointment is not already scheduled: Please call [facility] to make a follow-up appointment for 2 weeks after your surgery at . Pending Studies at Discharge: No Stand-Alone Forms: [employer], Smoking Cessation Medications and DC Order Prescriptions: New celecoxib [Celebrex] 200 mg Capsule 200 mg PO BID PRN (Reason: Pain/inflammation) Qty: 28 RF: 0 sennosides [Senokot] 8.6 mg Tablet 17.2 mg PO HS PRN (Reason: Constipation) Qty: 28 RF: 0 aspirin [Ecotrin] 325 mg Tablet,Delayed Release (Dr/Ec) 325 mg PO BID Qty: 56 RF: 0 acetaminophen 500 mg Tablet 1,000 mg PO Q8H PRN (Reason: fever or pain) Qty: 90 RF: 0 tramadol 50 mg Tablet 50 mg PO Q6H MDD 6 PRN (Reason: pain) Qty: 30 RF: 0 Continued latanoprost 0.005 % Drops 1 drp OPHTHALMIC (EYE) HS RF: 0 Breo Ellipta 200-25 mcg/dose Blister With Device 1 inh INHALATION QAM RF: 0 Spiriva Respimat 1.25 mcg/actuation Mist 2 puff INHALATION HS RF: 0 omeprazole 20 mg Tablet,Disintegrat, Delay Rel 20 mg PO QAM RF: 0 Nucala 100 mg/mL Syringe 100 mg SUBCUT MO RF: 0 albuterol sulfate 90 mcg/actuation Hfa Aerosol Inhaler 1 puff INHALATION QID PRN (Reason: sob) RF: 0 Discontinued meloxicam [Mobic] 7.5 mg Tablet 7.5 mg PO BID RF: 0 Discharge Orders: Discharge Order (Routine); Ordered 07/17/20 Ordered By: Turner Fisher Admission Data Admit Date/Time: 07/15/20 13:48 Attending Provider: Turner Fisher Admit Provider: Turner Fisher Primary Care Provider: Juanita Sims Other Providers: [facility],Home Health Other Interventions: Discharge Summary Assessment (RN) Last Done: 07/17/20 09:45
== END 2020-07-17 13:27 | disposition home health service (06) ==
LOC: 3E 08:51 → ASU 08:51